=== PATIENT | female | born 1965 | race African-American/Black ===

== ENCOUNTER 2018-09-29 23:15 | Emergency (ER) | payer MEDICARE, OTHER ==
[~2018-09-29] VITALS: Ht 162.6 cm; Wt 54.4 kg
[2018-09-29 23:52] LABS: BASO % 1 % (0-3); EOS # 0.1 x10^3/uL (0.0-0.7); EOS % 2 % (0-3); HEMATOCRIT 44.5 % (36.0-47.0); HEMOGLOBIN 15.3 g/dL (12.0-15.5); LYMPH # 1.9 x10^3/uL (1.0-4.8); LYMPH % 37 % (24-48); MEAN CORPUSCULAR HEMOGLOBIN 29 pg (25-35); MEAN CORPUSCULAR HGB CONC 34 g/dL (31-37); MEAN CORPUSCULAR VOLUME 83 fL (79-100); MONO # 0.5 x10^3/uL (0.0-1.1); MONO % 9 % (0-9); NEUT # 2.7 x10^3uL (1.8-7.7); NEUT % 51 % (31-73); PLATELET COUNT 258 x10^3/uL (140-400); RED BLOOD COUNT 5.35 x10^6/uL (3.50-5.40); RED CELL DISTRIBUTION WIDTH 13.3 % (11.5-14.5); WHITE BLOOD COUNT 5.3 x10^3/uL (4.0-11.0)
[2018-09-30 00:05] LABS: PROTHROMBIN TIME PATIENT 12.9 SEC (11.7-14.0)
--- NOTE | 2018-09-30 00:27 | PHYS DOC ---
Past Medical History Past Medical History: Hypertension, Stroke Additional Past Medical Histor: ulcerative colitis Past Surgical History: Hysterectomy Alcohol Use: Occasionally Drug Use: Marijuana Adult General Chief Complaint Chief Complaint: CHEST PAIN HPI HPI Patient is a 53 year old female presents to the ED with chest pain and headache. Her headache started 2 weeks ago when she "passed out" in a [employer] bathroom and could not get up. She woke up with a hand contracture of her left hand. She has had a "horrible" unrelenting headache since. She went to her PCP earlier today who told her to take another blood pressure medicine. She did and her blood pressure did not go down. Her chest started hurting 3 days ago. She also has shortness of breath with her chest pain. Chest pain is rated 10/10 and radiates up to the left arm. She is on Xanax and Percocet lately for anxiety and a broken right shoulder in April 2018, respectively. She tried taking each and neither helped. The headache and chest pain combination reminds her of when she had a stroke. Denies fever/chills. Denies further trauma. Review of Systems Review of Systems Constitutional: Denies fever or chills [] Eyes: Admits blurry vision. Denies redness, or eye pain [] HENT: Denies nasal congestion or sore throat [] Respiratory: Admits shortness of breath. Denies cough Cardiovascular: Admits chest pain. Denies palpitations. GI: Denies abdominal pain, nausea, vomiting, or diarrhea [] : Denies dysuria or hematuria [] Musculoskeletal: Admits bilateral shoulder pain. Denies back pain. [] Integument: Denies rash or skin lesions [] Neurologic: Admits headache and chronic numbness in feet and hands. Denies focal weakness Complete systems were reviewed and found to be within normal limits, except as documented in this note. Current Medications Current Medications Current Medications Medications (Trade) Dose Ordered Sig/Ave Start Time Stop Time Status Last Admin Dose Admin Dexamethasone Sodium Phosphate (Decadron) 10 mg 1X ONCE 09/30/18 01:00 09/30/18 01:01 DC 09/30/18 01:00 10 MG Diphenhydramine HCl (Benadryl) 50 mg 1X ONCE 09/30/18 01:00 09/30/18 01:01 DC 09/30/18 01:00 50 MG Ondansetron HCl (Zofran) 4 mg 1X ONCE 09/30/18 01:00 09/30/18 01:01 DC 09/30/18 00:59 4 MG Sodium Chloride 1,000 ml @ 1,000 mls/hr 1X ONCE 09/30/18 01:00 09/30/18 01:59 DC 09/30/18 00:59 1,000 MLS/HR Allergies Allergies Allergies Coded Allergies Type Severity Reaction Last Updated Verified prochlorperazine Allergy Severe Anaphylaxis 02/24/15 No Physical Exam Physical Exam Constitutional: Well developed, well nourished, no acute distress, non-toxic appearance. [] HENT: Normocephalic, atraumatic, oropharynx moist, nose normal. [] Eyes: PERRL, EOMI, conjunctiva normal, no discharge. [] Neck: Normal range of motion, no tenderness, supple, no meningeal signs Cardiovascular: Heart rate regular rhythm, no murmur [] Lungs & Thorax: Bilateral breath sounds clear to auscultation [] Abdomen: Soft, no tenderness Skin: Warm, dry, no erythema, no rash. [] Back: No tenderness, no CVA tenderness. [] Extremities: Right shoulder tenderness on ROM at glenohumeral joint, no deformity, no edema, neurovascularly intact Neurologic: Alert and oriented X 3, normal motor function, normal sensory function, no focal deficits noted. [] Psychologic: Affect normal, judgement normal, mood normal. [] Current Patient Data Vital Signs Vital Signs Date Time Temp Pulse Resp B/P (MAP) Pulse Ox O2 Delivery O2 Flow Rate FiO2 09/30/18 01:33 94 16 90/61 (71) 100 Room Air 09/29/18 23:27 98.9 98.9 Lab Values Laboratory Tests Test 09/29/18 23:40 09/30/18 00:00 09/30/18 00:18 White Blood Count 5.3 x10^3/uL (4.0-11.0) Red Blood Count 5.35 x10^6/uL (3.50-5.40) Hemoglobin 15.3 g/dL (12.0-15.5) Hematocrit 44.5 % (36.0-47.0) Mean Corpuscular Volume 83 fL (79-100) Mean Corpuscular Hemoglobin 29 pg (25-35) Mean Corpuscular Hemoglobin Concent 34 g/dL (31-37) Red Cell Distribution Width 13.3 % (11.5-14.5) Platelet Count 258 x10^3/uL (140-400) Neutrophils (%) (Auto) 51 % (31-73) Lymphocytes (%) (Auto) 37 % (24-48) Monocytes (%) (Auto) 9 % (0-9) Eosinophils (%) (Auto) 2 % (0-3) Basophils (%) (Auto) 1 % (0-3) Neutrophils # (Auto) 2.7 x10^3uL (1.8-7.7) Lymphocytes # (Auto) 1.9 x10^3/uL (1.0-4.8) Monocytes # (Auto) 0.5 x10^3/uL (0.0-1.1) Eosinophils # (Auto) 0.1 x10^3/uL (0.0-0.7) Basophils # (Auto) 0.0 x10^3/uL (0.0-0.2) Prothrombin Time 12.9 SEC (11.7-14.0) Prothrombin Time INR 1.0 (0.8-1.1) Urine Opiates Screen Neg (NEG) Urine Methadone Screen Neg (NEG) Urine Barbiturates Neg (NEG) Urine Phencyclidine Screen Neg (NEG) Urine Amphetamine/Methamphetamine Neg (NEG) Urine Benzodiazepines Screen Pos (NEG) Urine Cocaine Screen Neg (NEG) Urine Cannabinoids Screen Pos (NEG) Urine Ethyl Alcohol Neg (NEG) Sodium Level 142 mmol/L (136-145) Potassium Level 3.6 mmol/L (3.5-5.1) Chloride Level 103 mmol/L (98-107) Carbon Dioxide Level 27 mmol/L (21-32) Anion Gap 12 (6-14) Blood Urea Nitrogen 12 mg/dL (7-20) Creatinine 0.7 mg/dL (0.6-1.0) Estimated GFR (Cockcroft-Gault) 106.7 BUN/Creatinine Ratio 17 (6-20) Glucose Level 104 mg/dL (70-99) H Calcium Level 9.4 mg/dL (8.5-10.1) Magnesium Level 2.0 mg/dL (1.8-2.4) Total Bilirubin 0.2 mg/dL (0.2-1.0) Aspartate Amino Transferase (AST) 22 U/L (15-37) Alanine Aminotransferase (ALT) 41 U/L (14-59) Alkaline Phosphatase 134 U/L (46-116) H Creatine Kinase 76 U/L (26-192) Creatine Kinase MB (Mass) 0.6 ng/mL (0.0-3.6) Creatine Kinase MB Relative Index 0.8 % (0-4) Troponin I Quantitative < 0.017 ng/mL (0.000-0.055) QC-Svd-F-Type Natriuretic Peptide 22 pg/mL (0-124) Total Protein 7.7 g/dL (6.4-8.2) Albumin 3.5 g/dL (3.4-5.0) Albumin/Globulin Ratio 0.8 (1.0-1.7) L Lipase 112 U/L (73-393) Ethyl Alcohol Level < 10 mg/dL (0-10) Laboratory Tests 09/29/18 23:40 Laboratory Tests 09/30/18 00:18 EKG EKG EKG taken at 2321 on 09/29/2018. Read at 2325. Sinus rhythm at [address] elevation. T wave inversions V5-V6. Radiology/Procedures Radiology/Procedures PROCEDURE: CHEST PA & LATERAL Two-view chest dated 09/30/2018. COMPARISON: None. Clinical data indication: Chest discomfort. FINDINGS: PA and lateral views of the chest were obtained. Heart and mediastinal contours are within normal limits. Lungs are clear without focal consolidation. Vascular interstitium within normal limits. No pleural effusion or pneumothorax. IMPRESSION: No acute findings. Electronically signed by: Luiz Calles MD (09/30/2018 1:07 AM) [facility] PROCEDURE: CT HEAD WO CONTRAST CT head without contrast dated 09/30/2018. No comparison available. CLINICAL INDICATION: Headache. TECHNIQUE: Contiguous axial imaging the head was performed from skull base to vertex. No contrast administered. One or more of the following individualized dose reduction techniques were utilized for this examination: 1. Automated exposure control 2. Adjustment of the mA and/or kV according to patient size 3. Use of iterative reconstruction technique FINDINGS: Ventricles and sulci are within normal limits for age. No midline shift or mass effect. Brain parenchyma is of normal attenuation. No hemorrhage or extra-axial collection. Posterior fossa and brainstem unremarkable. Visualized paranasal sinuses and mastoid air cells are clear. No acute calvarial abnormality. IMPRESSION: No evidence of acute intracranial abnormality. Electronically signed by: Luiz Calles MD (09/30/2018 1:10 AM) PROCEDURE: SHOULDER 2+V RIGHT Three-view right shoulder dated 09/30/2018. No comparison available. CLINICAL INDICATION: Pain after injury. FINDINGS: 3 views of the right shoulder show irregularity and cortical step-off of the humeral head near the level of the anatomic neck. No significant displacement. Mild degenerative change of the glenohumeral joint. Mild degenerative change of the AC joint. IMPRESSION: Cortical irregularity of the proximal humerus could represent a nondisplaced fracture. This is age indeterminate and could be subacute to remote. If indicated CT could better evaluate. Electronically signed by: Luiz Calles MD (09/30/2018 1:09 AM) [facility] Course & Med Decision Making Course & Med Decision Making Pertinent Labs and Imaging studies reviewed. (See chart for details) Patient presents to the ED with chest pain 3 days and headache was 2 weeks with concern for elevated blood pressure. BP upon arrival was 160s/90s. Patient neurologically intact. NIHSS 0. Headache addressed with interval improvement of both blood pressure and discomfort. Troponin negative. EKG unremarkable for acute findings other than inverted T wave in V5. Heart score 3. Chest x-ray benign. CT head neck showed no acute intracranial abnormalities. Right shoulder x-ray showed subacute to remote fracture of right humerus. Patient stable for discharge with outpatient follow-up with PCP. Discussed findings and plan with patient, who acknowledge understanding and agreement. Dragon Disclaimer Dragon Disclaimer This electronic medical record was generated, in whole or in part, using a voice recognition dictation system. Departure Departure Impression: Primary Impression: Chest pain Additional Impressions: Chronic right shoulder pain Headache Disposition: 01 HOME, SELF-CARE Condition: STABLE Referrals: TAWANNA HORN MD (PCP) Patient Instructions: Chest Pain (Nonspecific), [id number], Chronic Pain, Headache, FAQs Scripts Butalb/Acetaminophen/Caffeine ([id number] 50-325-40) 1 Each Tablet 1 EACH PO Q6HRS PRN for HEADACHE, #14 TAB Prov: LUIZ BAILEY DO 09/30/18 NIHSS Stroke Scale NIH Stroke Scale: NIH Stroke Scale Response (Comments) Value Level of Consciousness: 0 Alert/Responsive 0 LOC Questions: 0 Answers both correctly 0 LOC Commands: 0 Performs both tasks 0 Best Gaze: 0 Normal 0 Visual: 0 No visual loss 0 Facial Palsy: 0 Normal, symmetrical 0 Motor - Left Arm 0 No drift 0 Motor - Right Arm 0 No drift 0 Motor - Left Leg 0 No drift 0 Motor: Right Leg 0 No drift 0 Limb Ataxia: 0 Absent 0 Sensory: 0 No loss 0 Best Language: 0 Normal 0 Dysathria: 0 Normal 0 Extinction and Inattention: 0 Normal 0 Total 0 Problem Qualifiers Primary Impression: Chest pain Chest pain type: unspecified Qualified Codes: R07.9 - Chest pain, unspecified Additional Impressions: Headache Headache type: unspecified Headache chronicity pattern: acute headache Intractability: not intractable Qualified Codes: R51 - Headache LUIZ BAILEY DO Sep 30, 2018 00:27
[2018-09-30 00:44] LABS: BARBITURATES NEG (NEG); BENZODIAZEPINES POS (NEG); CANNABINOIDS POS (NEG); COCAINE NEG (NEG); METHADONE NEG (NEG); OPIATES NEG (NEG); PHENCYCLIDINE NEG (NEG)
[2018-09-30 00:51] LABS: AMPHETAMINE/METHAMPHETAMINE NEG (NEG)
[2018-09-30 00:57] LABS: CALCIUM 9.4 mg/dL (8.5-10.1); CREATININE 0.7 mg/dL (0.6-1.0); GFR 106.7; POTASSIUM 3.6 mmol/L (3.5-5.1)
[2018-09-30 01:00] LABS: ALBUMIN 3.5 g/dL (3.4-5.0); ALBUMIN/GLOBULIN RATIO 0.8 (1.0-1.7); TOTAL BILIRUBIN 0.2 mg/dL (0.2-1.0); TOTAL PROTEIN 7.7 g/dL (6.4-8.2)
[2018-09-30] MEDS ORDERED: diphenhydrAMINE 50 MG/ML VIAL IVP ONE (01:00)
[2018-09-30] MEDS ORDERED: IV NORMAL SALINE 1000ML BAG 1,000 ML IV ONE (01:00)
[2018-09-30] MEDS ORDERED: DEXAMETHASONE SOD PHOS 20 MG/5 ML VIAL. IV ONE (01:00)
[2018-09-30] MEDS ORDERED: ONDANSETRON PF 4 MG/2 ML VIAL. IV ONE (01:00)
--- NOTE | 2018-09-30 01:10 | RAD ---
Two-view chest dated 09/30/2018. COMPARISON: None. Clinical data indication: Chest discomfort. FINDINGS: PA and lateral views of the chest were obtained. Heart and mediastinal contours are within normal limits. Lungs are clear without focal consolidation. Vascular interstitium within normal limits. No pleural effusion or pneumothorax. IMPRESSION: No acute findings. Electronically signed by: Luiz Calles MD (09/30/2018 1:07 AM) [facility]
--- NOTE | 2018-09-30 01:12 | RAD ---
Three-view right shoulder dated 09/30/2018. No comparison available. CLINICAL INDICATION: Pain after injury. FINDINGS: 3 views of the right shoulder show irregularity and cortical step-off of the humeral head near the level of the anatomic neck. No significant displacement. Mild degenerative change of the glenohumeral joint. Mild degenerative change of the AC joint. IMPRESSION: Cortical irregularity of the proximal humerus could represent a nondisplaced fracture. This is age indeterminate and could be subacute to remote. If indicated CT could better evaluate. Electronically signed by: Luiz Calles MD (09/30/2018 1:09 AM) [facility]
--- NOTE | 2018-09-30 01:13 | RAD ---
CT head without contrast dated 09/30/2018. No comparison available. CLINICAL INDICATION: Headache. TECHNIQUE: Contiguous axial imaging the head was performed from skull base to vertex. No contrast administered. One or more of the following individualized dose reduction techniques were utilized for this examination: 1. Automated exposure control 2. Adjustment of the mA and/or kV according to patient size 3. Use of iterative reconstruction technique FINDINGS: Ventricles and sulci are within normal limits for age. No midline shift or mass effect. Brain parenchyma is of normal attenuation. No hemorrhage or extra-axial collection. Posterior fossa and brainstem unremarkable. Visualized paranasal sinuses and mastoid air cells are clear. No acute calvarial abnormality. IMPRESSION: No evidence of acute intracranial abnormality. Electronically signed by: Luiz Calles MD (09/30/2018 1:10 AM) [facility]
[2018-09-30 01:33] VITALS: BP 90/61
[2018-09-30] MEDS ORDERED: BUTA1TAB23 PO (01:50)
--- NOTE | 2018-09-30 07:06 | EKG ---
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
== END 2018-09-30 02:19 | disposition home or self-care (01) ==
LOC: ER 23:15
DX: R07.89 Other chest pain (principal); R51 Headache; G89.29 Other chronic pain; M25.511 Pain in right shoulder; I10 Essential (primary) hypertension; Z86.73 Personal history of transient ischemic attack (TIA), and cerebral infarction without residual deficits; Z88.8 Allergy status to other drugs, medicaments and biological substances
CPT/HCPCS: 36415; 70450; 71046; 73030; 80053; 80307; 82553; 83690; 83735; 83880; 84484; 85025; 85610; 93005; 96361; 96374; 96375; 99284; G0480; J1100; J1200; J2405; J7030

== ENCOUNTER 2018-12-03 00:28 | Emergency (ER) | payer OTHER ==
[~2018-12-03] VITALS: Ht 162.6 cm; Wt 72.1 kg
[~2018-12-03 00:28] MED LIST: BUTA1TAB23 PO
[2018-12-03 01:18] LABS: BILIRUBIN,URINE NEGATIVE (NEG); CLARITY,URINE CLEAR; COLOR,URINE YELLOW; NITRITE,URINE NEGATIVE (NEG); PH,URINE 5.5; PROTEIN,URINE NEGATIVE (NEG-TRACE); UROBILINOGEN,URINE 0.2 mg/dL (0.2 mg/dL)
--- NOTE | 2018-12-03 01:20 | PHYS DOC ---
Past Medical History Past Medical History: Hypertension, Stroke Additional Past Medical Histor: IBS Past Surgical History: Hysterectomy Alcohol Use: Occasionally Drug Use: Marijuana Adult General Chief Complaint Chief Complaint: ABDOMINAL PAIN HPI HPI Patient is a 53 year old female who presents with complaining of abdominal pain. Patient complaining of left upper quadrant cramping and constant pain for the last 3 days with radiation to her back and chest. Patient rated her pain 10 over 10 and complaining of nausea and anorexia and increasing pain with eating. Patient states she had constipation for the last 5 days even she re-started to take Linzess one week ago. Patient complaining of bloating abdomen with passing of gas without fever, vomiting, urinary symptoms, vaginal bleeding or discharge. Patient states she took Percocet several hours ago without change of her pain. Patient states she had migraine headache and is of radiation of pain to his chest and decided to come to ER. Review of Systems Review of Systems Constitutional: Denies fever or chills [] Eyes: Denies change in visual acuity, redness, or eye pain [] HENT: Denies nasal congestion or sore throat [] Respiratory: Denies cough or shortness of breath [] Cardiovascular: No additional information not addressed in HPI [] GI: Reports abdominal pain, nausea, constipation, denies vomiting, bloody stools or diarrhea [] : Denies dysuria or hematuria [] Musculoskeletal: Denies back pain or joint pain [] Integument: Denies rash or skin lesions [] Neurologic: Denies headache, focal weakness or sensory changes [] Endocrine: Denies polyuria or polydipsia [] All other systems were reviewed and found to be within normal limits, except as documented in this note. Current Medications Current Medications Current Medications Medications (Trade) Dose Ordered Sig/[facility] Start Time Stop Time Status Last Admin Dose Admin Acetaminophen/ Hydrocodone Bitart (Lortab 5/325) 1 tab 1X ONCE 12/03/18 03:00 12/03/18 03:01 Fentanyl Citrate (Fentanyl 2ml Vial) 50 mcg 1X ONCE 12/03/18 01:30 12/03/18 01:31 DC 12/03/18 01:25 50 MCG Info (CONTRAST GIVEN -- Rx MONITORING) 1 each PRN DAILY PRN 12/03/18 02:15 12/05/18 02:14 Iohexol (Omnipaque 300 Mg/ml) 100 ml 1X ONCE 12/03/18 02:30 12/03/18 02:31 DC 12/03/18 02:16 75 ML Ondansetron HCl (Zofran) 4 mg 1X ONCE 12/03/18 01:30 12/03/18 01:31 DC 12/03/18 01:25 4 MG Potassium Chloride (Klor-Con) 40 meq 1X ONCE 12/03/18 03:00 12/03/18 03:01 Sodium Chloride 1,000 ml @ 1,000 mls/hr Q1H 12/03/18 01:30 12/03/18 02:29 DC 12/03/18 01:25 1,000 MLS/HR Allergies Allergies Allergies Coded Allergies Type Severity Reaction Last Updated Verified prochlorperazine Allergy Severe Anaphylaxis 02/24/15 No Physical Exam Physical Exam Constitutional: Well developed, well nourished, mild distress, non-toxic appearance. [] HENT: Normocephalic, atraumatic, oropharynx moist. Eyes: PERRLA, EOMI, conjunctiva normal, no discharge. [] Neck: Normal range of motion, no tenderness, supple, no stridor. [] Cardiovascular:Heart rate regular rhythm, no murmur [] Lungs & Thorax: Bilateral breath sounds clear to auscultation [] Abdomen: Bowel sounds normal, soft, no tenderness, no masses, no pulsatile masses. [] Skin: Warm, dry, no erythema, no rash. [] Back: No tenderness, no CVA tenderness. [] Extremities: No tenderness, no cyanosis, no clubbing, ROM intact, no edema. [] Neurologic: Alert and oriented X 3, normal motor function, normal sensory function, no focal deficits noted. [] Psychologic: Affect normal, judgement normal, mood normal. [] Current Patient Data Vital Signs Vital Signs Date Time Temp Pulse Resp B/P (MAP) Pulse Ox O2 Delivery O2 Flow Rate FiO2 12/03/18 01:25 18 98 Room Air 12/03/18 00:50 98.2 87 133/98 (110) 98.2 Lab Values Laboratory Tests Test 12/03/18 00:30 12/03/18 01:26 Urine Collection Type Unknown Urine Color Yellow Urine Clarity Clear Urine pH 5.5 Urine Specific [place] 1.010 Urine Protein Negative mg/dL (NEG-TRACE) Urine Glucose (UA) Negative mg/dL (NEG) Urine Ketones (Stick) Negative mg/dL (NEG) Urine Blood Negative (NEG) Urine Nitrite Negative (NEG) Urine Bilirubin Negative (NEG) Urine Urobilinogen Dipstick 0.2 mg/dL (0.2 mg/dL) Urine Leukocyte Esterase Small (NEG) Urine RBC Occ /HPF (0-2) Urine WBC 5-10 /HPF (0-4) Urine Squamous Epithelial Cells Mod /LPF Urine Bacteria Few /HPF (0-FEW) White Blood Count 3.9 x10^3/uL (4.0-11.0) L Red Blood Count 4.75 x10^6/uL (3.50-5.40) Hemoglobin 13.4 g/dL (12.0-15.5) Hematocrit 39.4 % (36.0-47.0) Mean Corpuscular Volume 83 fL (79-100) Mean Corpuscular Hemoglobin 28 pg (25-35) Mean Corpuscular Hemoglobin Concent 34 g/dL (31-37) Red Cell Distribution Width 13.3 % (11.5-14.5) Platelet Count 205 x10^3/uL (140-400) Neutrophils (%) (Auto) 45 % (31-73) Lymphocytes (%) (Auto) 40 % (24-48) Monocytes (%) (Auto) 12 % (0-9) H Eosinophils (%) (Auto) 2 % (0-3) Basophils (%) (Auto) 1 % (0-3) Neutrophils # (Auto) 1.8 x10^3uL (1.8-7.7) Lymphocytes # (Auto) 1.6 x10^3/uL (1.0-4.8) Monocytes # (Auto) 0.5 x10^3/uL (0.0-1.1) Eosinophils # (Auto) 0.1 x10^3/uL (0.0-0.7) Basophils # (Auto) 0.0 x10^3/uL (0.0-0.2) Sodium Level 140 mmol/L (136-145) Potassium Level 3.1 mmol/L (3.5-5.1) L Chloride Level 103 mmol/L (98-107) Carbon Dioxide Level 25 mmol/L (21-32) Anion Gap 12 (6-14) Blood Urea Nitrogen 14 mg/dL (7-20) Creatinine 0.8 mg/dL (0.6-1.0) Estimated GFR (Cockcroft-Gault) 91.5 BUN/Creatinine Ratio 18 (6-20) Glucose Level 123 mg/dL (70-99) H Calcium Level 9.4 mg/dL (8.5-10.1) Total Bilirubin 0.3 mg/dL (0.2-1.0) Aspartate Amino Transferase (AST) 24 U/L (15-37) Alanine Aminotransferase (ALT) 21 U/L (14-59) Alkaline Phosphatase 105 U/L (46-116) Total Protein 7.5 g/dL (6.4-8.2) Albumin 3.6 g/dL (3.4-5.0) Albumin/Globulin Ratio 0.9 (1.0-1.7) L Lipase 109 U/L (73-393) Laboratory Tests 12/03/18 01:26 Laboratory Tests 12/03/18 01:26 EKG EKG [] Radiology/Procedures Radiology/Procedures [facility] [address] [place] [address] IMAGING REPORT Signed PATIENT: BONITA RIVERA ACCOUNT: [id number] : 1965 LOCATION: ER AGE: 53 SEX: F EXAM STATUS: REG ER ORD. PHYSICIAN: SAMREEN MYERS MD REASON: left upper quadrant pain PROCEDURE: CT ABD PELV W/ IV CONTRST ONLY Examination: CT of the abdomen pelvis with IV contrast HISTORY: History of left upper quadrant abdominal pain COMPARISON: 06/25/2011 TECHNIQUE: Axial CT images of the abdomen pelvis were performed with IV contrast. Coronal and sagittal reformatted performed Exposure: One or more of the following individualized dose reduction techniques were utilized for this examination: 1. Automated exposure control 2. Adjustment of the mA and/or kV according to patient size 3. Use of iterative reconstruction technique FINDINGS: Mild bibasilar lung airspace opacities likely atelectasis. No evidence of free air identified in the abdomen. Mild prominent appearing intrahepatic bile ducts and the common bile duct likely post cholecystectomy changes similar to prior exam. Focal fat identified in the left lobe of the liver is similar to prior exam. The visualized spleen, adrenals grossly appears unremarkable. The stomach is mildly distended. The small bowel is nondilated. The cord stool identified in the colon. The appendix is normal. The bilateral kidneys enhance symmetrically. The caliber of the aorta grossly appears unremarkable. The urinary bladder is mildly distended. The is a small nodule or lymph node identified in the left breast measuring 7 mm. No evidence of lytic bony destructive lesion. IMPRESSION: 1. Cholecystectomy changes unchanged. 2. Liquid stool identified in the colon probably secondary for diarrhea. 3. 7 mm nodule identified in the left breast could be breast nodule or lymph node. Follow-up nonemergent ultrasound breast and mammogram can be considered. Electronically signed by: King Macdonald MD (12/03/2018 2:30 AM) [facility] DICTATED and SIGNED BY: KING MACDONALD MD DATE: 12/03/18 0230 Course & Med Decision Making Course & Med Decision Making Pertinent Labs and Imaging studies reviewed. (See chart for details) Evaluation of patient in ER showed 53-year-old female patient with complaining of abdominal pain. Patient had the same pain with previous episodes of otitis. Patient had unremarkable labs except for mild hypokalemia and UTI. CT of abdomen and pelvis did not show acute finding. Patient treated with any treatment in ER and plans to see her primary care physician today. I've spoken with the patient and/or caregivers. I've explained the patient's condition, diagnosis and treatment plan based on information available to me at this time. I've answered the patient's and/or caregivers questions and addressed any concerns. The patient and/or caregivers have a good understanding the patient's diagnosis, condition and treatment plan as can be expected at this point. Vital signs have been stabilized. The patient's condition is stable for discharge from the emergency department. The patient will pursue further outpatient evaluation with her primary care provider or other designated consulting physician as outlined in the discharge instructions. Patient and/or caregivers are agreeable to this plan of care and follow-up instructions have been explained in detail. The patient and/or caregivers have received these instructions in written format and expressed understanding of these discharge instructions. The patient and her caregivers are aware that if any significant change in condition or worsening of symptoms should prompt him to immediately return to this of the closest emergency department. If an emergent department is not readily available I would encourage him to call 911. Teofilo Disclaimer Dragon Disclaimer This electronic medical record was generated, in whole or in part, using a voice recognition dictation system. Departure Departure Impression: Primary Impression: Irritable bowel syndrome with diarrhea Additional Impressions: Hypokalemia Urinary tract infection Disposition: HOME, SELF-CARE (at 0246) Condition: IMPROVED Referrals: TAWANNA HORN MD (PCP) Patient Instructions: Diarrhea, Diet for Diarrhea, Adult, Hypokalemia, Urinary Tract Infection Additional Instructions: Drink plenty of liquids Follow-up with your primary care physician as scheduled for today Return to ER if not getting better Scripts Ciprofloxacin Hcl (CIPRO) 250 Mg Tablet 1 TAB PO BID for infection, #6 TAB Prov: SAMREEN MYERS MD 12/03/18 Problem Qualifiers Additional Impressions: Urinary tract infection Urinary tract infection type: site unspecified Hematuria presence: without hematuria Qualified Codes: N39.0 - Urinary tract infection, site not specified SAMREEN MYERS MD December 03, 2018 01:20
[2018-12-03] MEDS ORDERED: ONDANSETRON PF 4 MG/2 ML VIAL. IV ONE (01:30)
[2018-12-03] MEDS ORDERED: fentaNYL PF VIAL 100 MCG/2 ML VIAL IV ONE (01:30)
[2018-12-03] MEDS ORDERED: IV NORMAL SALINE 1000ML BAG 1,000 ML IV SCH (01:30)
[2018-12-03 01:40] LABS: RBC,URINE OCC /HPF (0-2)
[2018-12-03 01:41] LABS: BACTERIA,URINE FEW /HPF (0-FEW); SQUAMOUS EPITHELIAL CELL,UR MOD /LPF
[2018-12-03 01:45] LABS: BASO % 1 % (0-3); EOS # 0.1 x10^3/uL (0.0-0.7); EOS % 2 % (0-3); HEMATOCRIT 39.4 % (36.0-47.0); HEMOGLOBIN 13.4 g/dL (12.0-15.5); LYMPH # 1.6 x10^3/uL (1.0-4.8); LYMPH % 40 % (24-48); MEAN CORPUSCULAR HEMOGLOBIN 28 pg (25-35); MEAN CORPUSCULAR HGB CONC 34 g/dL (31-37); MEAN CORPUSCULAR VOLUME 83 fL (79-100); MONO # 0.5 x10^3/uL (0.0-1.1); MONO % 12 % (0-9); NEUT # 1.8 x10^3uL (1.8-7.7); NEUT % 45 % (31-73); PLATELET COUNT 205 x10^3/uL (140-400); RED BLOOD COUNT 4.75 x10^6/uL (3.50-5.40); RED CELL DISTRIBUTION WIDTH 13.3 % (11.5-14.5); WHITE BLOOD COUNT 3.9 x10^3/uL (4.0-11.0)
[2018-12-03 01:50] VITALS: BP 100/66
[2018-12-03 01:50] LABS: CALCIUM 9.4 mg/dL (8.5-10.1); CREATININE 0.8 mg/dL (0.6-1.0); GFR 91.5; POTASSIUM 3.1 mmol/L (3.5-5.1)
[2018-12-03 01:56] LABS: ALBUMIN 3.6 g/dL (3.4-5.0); ALBUMIN/GLOBULIN RATIO 0.9 (1.0-1.7); TOTAL BILIRUBIN 0.3 mg/dL (0.2-1.0); TOTAL PROTEIN 7.5 g/dL (6.4-8.2)
[2018-12-03] MEDS ORDERED: CONTRAST GIVEN. MC PRN (02:15)
[2018-12-03] MEDS ORDERED: IOHEXOL 300 MG/ML 100ML VIAL. IV ONE (02:30)
--- NOTE | 2018-12-03 02:33 | RAD ---
Examination: CT of the abdomen pelvis with IV contrast HISTORY: History of left upper quadrant abdominal pain COMPARISON: 06/25/2011 TECHNIQUE: Axial CT images of the abdomen pelvis were performed with IV contrast. Coronal and sagittal reformatted performed Exposure: One or more of the following individualized dose reduction techniques were utilized for this examination: 1. Automated exposure control 2. Adjustment of the mA and/or kV according to patient size 3. Use of iterative reconstruction technique FINDINGS: Mild bibasilar lung airspace opacities likely atelectasis. No evidence of free air identified in the abdomen. Mild prominent appearing intrahepatic bile ducts and the common bile duct likely post cholecystectomy changes similar to prior exam. Focal fat identified in the left lobe of the liver is similar to prior exam. The visualized spleen, adrenals grossly appears unremarkable. The stomach is mildly distended. The small bowel is nondilated. The cord stool identified in the colon. The appendix is normal. The bilateral kidneys enhance symmetrically. The caliber of the aorta grossly appears unremarkable. The urinary bladder is mildly distended. The is a small nodule or lymph node identified in the left breast measuring 7 mm. No evidence of lytic bony destructive lesion. IMPRESSION: 1. Cholecystectomy changes unchanged. 2. Liquid stool identified in the colon probably secondary for diarrhea. 3. 7 mm nodule identified in the left breast could be breast nodule or lymph node. Follow-up nonemergent ultrasound breast and mammogram can be considered. Electronically signed by: King Macdonald MD (12/03/2018 2:30 AM) [facility]
[2018-12-03] MEDS ORDERED: CIPR250T30 PO (02:48)
[2018-12-03] MEDS ORDERED: HYDROcodone/APAP 5/325MG 1 TAB TABLET PO ONE (03:00)
[2018-12-03] MEDS ORDERED: POTASSIUM CHLORIDE 20 MEQ TABLET.ER. PO ONE (03:00)
--- NOTE | 2018-12-10 10:59 | NUR ---
Late entry made to Medical Record. IV Stop time transcribed from eMAR to IV spreadsheet
== END 2018-12-03 03:00 | disposition home or self-care (01) ==
LOC: ER 00:28
DX: K58.0 Irritable bowel syndrome with diarrhea (principal); N39.0 Urinary tract infection, site not specified; E87.6 Hypokalemia; I10 Essential (primary) hypertension; Z86.73 Personal history of transient ischemic attack (TIA), and cerebral infarction without residual deficits; Z90.710 Acquired absence of both cervix and uterus; Z88.8 Allergy status to other drugs, medicaments and biological substances
CPT/HCPCS: 36415; 74177; 80053; 81001; 83690; 85025; 87086; 96361; 96374; 96375; 99285; J2405; J3010; J7030; Q9967

== ENCOUNTER 2019-08-17 22:11 | Emergency (ER) | payer MEDICARE, OTHER ==
[~2019-08-17] VITALS: Ht 162.6 cm; Wt 64.0 kg
[~2019-08-17 22:11] MED LIST changes: +CIPR250T30 PO
[2019-08-17 23:35] VITALS: BP 141/97
--- NOTE | 2019-08-17 23:45 | PHYS DOC ---
Past Medical History Past Medical History: Hypertension, Stroke Additional Past Medical Histor: IBS Past Surgical History: Hysterectomy Alcohol Use: Occasionally Drug Use: Marijuana Adult General Chief Complaint Chief Complaint: HEADACHE [facility] HPI Patient is a 54 year old AA female who presents to the emergency department with complaints of headache behind her left eye all day today. Patient states that she thought it was due to her blood pressure being elevated and she tried to go to her primary care doctor's office at approximately 1700 this evening but was told they could not work her in and states she became upset because she asked them to check her vital signs in the refused to check her vital signs. Patient states upon returning home she took an additional dose of her blood pressure medicine, Flexeril, Percocet, and Xanax. She states she came to the emergency room because her headache continued. Currently she states that her headache is actually getting better. She currently rates the pain a 9 out of 10 on the pain scale. Patient states when she left her home the headache was a 10 out of 10 on the pain scale. She denies any vision changes, nausea, vomiting, abdominal pain, numbness, tingling, weakness, or difficulty speaking with the headache. Patient refuses an IV or medications at this time. She states she is starting to feel better and would just like to see if the meds she took help more and then go home. All other ROS is neg unless otherwise noted in HPI. Review of Systems Review of Systems See Above Allergies Allergies Allergies Coded Allergies Type Severity Reaction Last Updated Verified prochlorperazine Allergy Severe Anaphylaxis 02/24/15 No Physical Exam Physical Exam See Above Constitutional: Well developed, well nourished, no acute distress, non-toxic appearance. [] HENT: Normocephalic, atraumatic, bilateral external ears normal, oropharynx moist, no oral exudates, nose normal. [] Eyes: PERRLA, EOMI, conjunctiva normal, no discharge. [] Neck: Normal range of motion, no stridor. [] Cardiovascular:Heart rate regular rhythm Lungs & Thorax: Respirations even and unlabored, no retractions, no respiratory distress Skin: Warm, dry, no erythema, no rash. [] Extremities: No cyanosis, ROM intact Neurologic: Alert and oriented X 3, CN II- CN VII intact, no focal deficits noted. [] Psychologic: Affect normal, judgement normal, mood normal. [] Current Patient Data Vital Signs Vital Signs Date Time Temp Pulse Resp B/P (MAP) Pulse Ox O2 Delivery O2 Flow Rate FiO2 08/17/19 22:50 90 16 100 08/17/19 22:15 97.7 166/113 (130) Room Air 97.7 EKG EKG [] Radiology/Procedures Radiology/Procedures [] Course & Med Decision Making Course & Med Decision Making Pertinent Labs and Imaging studies reviewed. (See chart for details) [] Dragon Disclaimer Dragon Disclaimer This electronic medical record was generated, in whole or in part, using a voice recognition dictation system. Departure Departure Impression: Primary Impression: Headache Disposition: 01 HOME, SELF-CARE Condition: STABLE Referrals: NO PCP (PCP) Patient Instructions: General Headache Without Cause, Toph-kg-Pirt Additional Instructions: Continue taking home medications as prescribed, do not take any more blood pressure medication tonight. Follow-up with your primary care doctor in 1-2 days, return to the ER if symptoms worsen. Problem Qualifiers Primary Impression: Headache Headache type: unspecified Headache chronicity pattern: acute headache Intractability: not intractable Qualified Codes: R51 - Headache TALYA ALMANZA THERAPIST PHYSICAL Aug 17, 2019 23:45
== END 2019-08-17 23:58 | disposition home or self-care (01) ==
LOC: ER 22:11
DX: R51 Headache (principal); I10 Essential (primary) hypertension; K58.9 Irritable bowel syndrome, unspecified; Z86.73 Personal history of transient ischemic attack (TIA), and cerebral infarction without residual deficits; Z88.8 Allergy status to other drugs, medicaments and biological substances
CPT/HCPCS: 99283

== ENCOUNTER 2019-11-23 03:52 | Emergency (ER) | payer MEDICARE ==
[~2019-11-23] VITALS: Ht 162.6 cm; Wt 64.9 kg
[2019-11-23] MEDS ORDERED: IV NORMAL SALINE 1000ML BAG 1,000 ML IV SCH (05:00)
--- NOTE | 2019-11-23 05:06 | RAD ---
Study: CR PORTABLE CHEST 1V Indication: Chest pain. Comparison: 09/30/2018 Findings: Similar configuration of the cardiomediastinal silhouette and triston noting lower lung volumes relative to the comparison. No confluent infiltrate, pneumothorax or layering effusion. Impression: No acute radiographic abnormality of the chest. Electronically signed by: DONTE TAO MD (11/23/2019 5:03 AM) [id number]
--- NOTE | 2019-11-23 05:27 | PHYS DOC ---
Past Medical History Past Medical History: Hypertension, Stroke Additional Past Medical Histor: IBS (MAYANK SCHMIDT Jr., DO) Past Surgical History: Hysterectomy (MAYANK SCHMIDT Jr., DO) Smoking Status: Never Smoker Alcohol Use: Occasionally Drug Use: Marijuana (MAYANK SCHMIDT Jr., DO) General Adult EDM: Chief Complaint: MULTIPLE COMPLAINTS HPI: HPI: Patient is a 54 year old female who presents with complaints of pain in her chest, her head and her back that has been present for the last few months. Patient indicates that she's been seen numerous times in multiple facilities with no specific findings. Patient states that she has had several EKGs performed over the last few weeks and she states that she keeps being told that everything is normal. Currently she rates her pain to be a 3 out of 10.[] (MAYANK SCHMIDT Jr., DO) Review of Systems: Review of Systems: Constitutional: Denies fever or chills. [] Respiratory: Complains of cough and shortness of breath. [] Cardiovascular: Complains of chest pain. [] GI: Denies abdominal pain, vomiting or diarrhea. [] Integument: Denies rash. [] Neurologic: Denies headache, focal weakness or sensory changes. [] A full 10 point review of systems has been reviewed and is otherwise negative. (MAYANK SCHMIDT Jr., DO) Heart Score: Risk Factors: Risk Factors: DM, Current or recent (<one month) smoker, HTN, HLP, family history of CAD, obesity. Risk Scores: Score 0 - 3: 2.5% MACE over next 6 weeks - Discharge Home Score 4 - 6: 20.3% MACE over next 6 weeks - Admit for Clinical Observation Score 7 - 10: 72.7% MACE over next 6 weeks - Early Invasive Strategies (MAYANK SCHMIDT Jr., DO) Current Medications: Current Medications Medications (Trade) Dose Ordered Sig/Ave Start Time Stop Time Status Last Admin Dose Admin Sodium Chloride 1,000 ml @ 1,000 mls/hr Q1H 11/23/19 05:00 11/23/19 05:59 (MAYANK SCHMIDT Jr., DO) Allergies: Allergies: Allergies Coded Allergies Type Severity Reaction Last Updated Verified prochlorperazine Allergy Severe Anaphylaxis 02/24/15 No (MAYANK SCHMIDT Jr., DO) Physical Exam: PE: Constitutional: Well developed, well nourished, no acute distress, non-toxic appearance. [] HENT: Normocephalic, atraumatic, bilateral external ears normal, oropharynx moist, no oral exudates, nose normal. [] Eyes: PERRLA, EOMI, conjunctiva normal, no discharge. [] Neck: Normal range of motion, no tenderness, supple, no stridor. [] Cardiovascular: Regular rate and rhythm. There is reproducible chest wall tenderness along the left mid to lower sternal margin[] Lungs & Thorax: Bilateral breath sounds clear to auscultation [] Abdomen: Bowel sounds normal, soft, no tenderness. [] Skin: Warm, dry, no erythema, no rash. [] Extremities: No tenderness, no cyanosis, no clubbing, ROM intact, no edema. [] Neurologic: Alert and oriented X 3, no focal deficits noted. [] (MAYANK SCHMIDT Jr., DO) Current Patient Data: Vital Signs: Vital Signs Date Time Temp Pulse Resp B/P (MAP) Pulse Ox O2 Delivery O2 Flow Rate FiO2 11/23/19 04:24 97.9 81 18 100/74 (83) 95 Room Air 97.9 (MAYANK SCHMIDT Jr., DO) EKG: EKG: EKG demonstrates a sinus rhythm with rate of 91.[] (MAYANK SCHMIDT Jr., DO) Radiology/Procedures: Radiology/Procedures: [] Impression: PROCEDURE: PORTABLE CHEST 1V Study: CR PORTABLE CHEST 1V Indication: Chest pain. Comparison: 09/30/2018 Findings: Similar configuration of the cardiomediastinal silhouette and triston noting lower lung volumes relative to the comparison. No confluent infiltrate, pneumothorax or layering effusion. Impression: No acute radiographic abnormality of the chest. Electronically signed by: DONTE TAO MD (11/23/2019 5:03 AM) [id number] (MAYANK SCHMIDT Jr., DO) Radiology/Procedures: PROCEDURE: PORTABLE CHEST 1V Study: CR PORTABLE CHEST 1V Indication: Chest pain. Comparison: 09/30/2018 Findings: Similar configuration of the cardiomediastinal silhouette and triston noting lower lung volumes relative to the comparison. No confluent infiltrate, pneumothorax or layering effusion. Impression: No acute radiographic abnormality of the chest. (YOANA ROGERS DO) Course & Med Decision Making: Course & Med Decision Making Pertinent Labs and Imaging studies reviewed. (See chart for details) [] (MAYANK SCHMIDT Jr. DO) Dragon Disclaimer: Dragon Disclaimer: This electronic medical record was generated, in whole or in part, using a voice recognition dictation system. (MAYANK SCHMIDT Jr. DO) Departure Departure Impression: Primary Impression: Chest wall pain Additional Impression: Headache Qualified Codes: R51 - Headache Disposition: HOME, SELF-CARE Condition: STABLE Referrals: NO PCP (PCP) Patient Instructions: Chest Wall Pain, General Headache Without Cause, Pleurisy Scripts Ketorolac Tromethamine (KETOROLAC TROMETHAMINE) 10 Mg Tablet 1 TAB PO TID, #15 TAB Prov: YOANA ROGERS DO 11/23/19 MAYANK SCHMIDT Jr. DO Nov 23, 2019 05:27 YOANA ROGERS DO Nov 23, 2019 06:38
[2019-11-23 06:06] LABS: BASO % 1 % (0-3); EOS # 0.1 x10^3/uL (0.0-0.7); EOS % 3 % (0-3); HEMATOCRIT 40.4 % (36.0-47.0); HEMOGLOBIN 13.5 g/dL (12.0-15.5); LYMPH # 1.9 x10^3/uL (1.0-4.8); LYMPH % 41 % (24-48); MEAN CORPUSCULAR HEMOGLOBIN 28 pg (25-35); MEAN CORPUSCULAR HGB CONC 34 g/dL (31-37); MEAN CORPUSCULAR VOLUME 85 fL (79-100); MONO # 0.4 x10^3/uL (0.0-1.1); MONO % 9 % (0-9); NEUT # 2.1 x10^3/uL (1.8-7.7); NEUT % 46 % (31-73); PLATELET COUNT 201 x10^3/uL (140-400); RED BLOOD COUNT 4.77 x10^6/uL (3.50-5.40); RED CELL DISTRIBUTION WIDTH 13.2 % (11.5-14.5); WHITE BLOOD COUNT 4.6 x10^3/uL (4.0-11.0)
--- NOTE | 2019-11-23 06:13 | EKG ---
[facility] [address] [place] [address] Test Date: 2019-11-23 Test Time: 04:41:55 Pat Name: BONITA RIVERA Department: Room: Gender: F Gm/[employer] Business: : 1965 Requested By: MAYANK SCHMIDT Order Number: [id number] Reading MD: Hayden Jones Measurements Intervals [place] Rate: 90 P: 40 [place]: 138 QRS: 39 QRSD: 82 T: 39 QT: 368 QTc: 454 Interpretive Statements SINUS RHYTHM NON SPECIFIC T ABNORMALITY Electronically Signed On 11-23-2019 10:32:52 CDT by Hayden Jones
[2019-11-23 06:21] LABS: CREATININE 0.8 mg/dL (0.6-1.0); GFR 91.1; POTASSIUM 4.1 mmol/L (3.5-5.1)
[2019-11-23 06:27] LABS: ALBUMIN 3.4 g/dL (3.4-5.0); ALBUMIN/GLOBULIN RATIO 0.9 (1.0-1.7); MAGNESIUM 1.8 mg/dL (1.8-2.4); TOTAL BILIRUBIN 0.2 mg/dL (0.2-1.0); TOTAL PROTEIN 7.3 g/dL (6.4-8.2)
[2019-11-23] MEDS ORDERED: KETO10TA PO (06:38)
[2019-11-23 06:44] VITALS: BP 112/74
== END 2019-11-23 06:50 | disposition home or self-care (01) ==
LOC: ER 03:52
DX: R07.89 Other chest pain (principal); R51 Headache; R05 Cough; R06.02 Shortness of breath; I10 Essential (primary) hypertension; I25.2 Old myocardial infarction; F12.90 Cannabis use, unspecified, uncomplicated; K58.9 Irritable bowel syndrome, unspecified; Z90.710 Acquired absence of both cervix and uterus
CPT/HCPCS: 36415; 71045; 80053; 83690; 83735; 83880; 84484; 85025; 85379; 93005; 99285; J7030

== ENCOUNTER 2021-03-14 22:41 | Emergency (ER) | payer MEDICARE ==
[~2021-03-14] VITALS: Ht 162.6 cm; Wt 75.0 kg
[~2021-03-14 22:41] MED LIST changes: +KETO10TA PO
--- NOTE | 2021-03-14 22:58 | PHYS DOC ---
Past Medical History Past Medical History: Hypertension, Stroke Additional Past Medical Histor: IBS Past Surgical History: Hysterectomy Smoking Status: Never Smoker Alcohol Use: Occasionally Drug Use: Marijuana General Adult EDM: Chief Complaint: CHEST PAIN HPI: HPI: Patient is a 55 year old 45 female with past medical history hypertension CVA with no residual weakness presents with a chief complaint of chest discomfort and headache. Patient states symptoms have been ongoing since March 03. Symptoms also included dehydration generalized weakness. [facility] and diagnosed with COVID-19. Patient states she received IV fluids with improvement. Patient also states she underwent a CAT scan of her chest. Patient states she felt much better yesterday so decided to come home to [place]. Patient states her headache and chest discomfort continued and made her think of her previous stroke therefore patient presents for evaluation. On exam patient is alert and oriented x4. She has no focal neurological deficits. Patient arrived to the ER via private vehicle and ambulated into the ER. Patient's vital signs are stable she is not tachycardic or hypoxic. EKG performed shows no acute ischemic changes. Review of Systems: Review of Systems: Constitutional: Denies fever or chills. [] Eyes: Denies change in visual acuity. [] HENT: Denies nasal congestion or sore throat. [] Respiratory: Denies cough or shortness of breath. [] Cardiovascular: positive chest pain GI: Denies abdominal pain, nausea, vomiting, bloody stools or diarrhea. [] : Denies dysuria. [] Musculoskeletal: Denies back pain or joint pain. [] Integument: Denies rash. [] Neurologic: Denies , focal weakness or sensory changes. [positive headache] Endocrine: Denies polyuria or polydipsia. [] Lymphatic: Denies swollen glands. [] Psychiatric: Denies depression or anxiety. [] Heart Score: C/O Chest Pain: N/A Risk Factors: Risk Factors: DM, Current or recent (<one month) smoker, HTN, HLP, family history of CAD, obesity. Risk Scores: Score 0 - 3: 2.5% MACE over next 6 weeks - Discharge Home Score 4 - 6: 20.3% MACE over next 6 weeks - Admit for Clinical Observation Score 7 - 10: 72.7% MACE over next 6 weeks - Early Invasive Strategies Allergies: Allergies: Allergies Coded Allergies Type Severity Reaction Last Updated Verified prochlorperazine Allergy Severe Anaphylaxis 02/24/15 No Physical Exam: PE: Constitutional: Well developed, well nourished, no acute distress, non-toxic appearance. [] HENT: Normocephalic, atraumatic, bilateral external ears normal, oropharynx moist, no oral exudates, nose normal. [] Eyes: PERRLA, EOMI, conjunctiva normal, no discharge. [] Neck: Normal range of motion, no tenderness, supple, no stridor. [] Cardiovascular:Heart rate regular rhythm, no murmur [] Lungs & Thorax: Bilateral breath sounds clear to auscultation [] Abdomen: Bowel sounds normal, soft, no tenderness, no masses, no pulsatile masses. [] Skin: Warm, dry, no erythema, no rash. [] Back: No tenderness, no CVA tenderness. [] Extremities: No tenderness, no cyanosis, no clubbing, ROM intact, no edema. [] Neurologic: Alert and oriented X 3, normal motor function, normal sensory function, no focal deficits noted. [] Psychologic: Affect normal, judgement normal, mood normal. [] EKG: EKG: [] Performed at 2249 Rate 78 Normal sinus rhythm No ST elevation No ST depression No acute CA Radiology/Procedures: Radiology/Procedures: [] Course & Med Decision Making: Course & Med Decision Making Pertinent Labs and Imaging studies reviewed. (See chart for details) [] Dragon Disclaimer: Dragon Disclaimer: This electronic medical record was generated, in whole or in part, using a voice recognition dictation system. Departure Departure Impression: Primary Impression: COVID-19 Additional Impressions: Chest pain Headache Disposition: HOME / SELF CARE / HOMELESS Condition: STABLE Referrals: NO PCP (PCP) GIL OSORIO DO Mar 14, 2021 22:58
[2021-03-14 23:24] LABS: BASO # 0.1 x10^3/uL (0.0-0.2); BASO % 1 % (0-3); EOS # 0.1 x10^3/uL (0.0-0.7); EOS % 2 % (0-3); LYMPH # 1.5 x10^3/uL (1.0-4.8); LYMPH % 32 % (24-48); MEAN CORPUSCULAR HEMOGLOBIN 30 pg (25-35); MEAN CORPUSCULAR HGB CONC 35 g/dL (31-37); MEAN CORPUSCULAR VOLUME 85 fL (79-100); MONO # 0.4 x10^3/uL (0.0-1.1); MONO % 9 % (0-9); NEUT # 2.6 x10^3/uL (1.8-7.7); NEUT % 57 % (31-73); PLATELET COUNT 254 x10^3/uL (140-400); RED BLOOD COUNT 4.37 x10^6/uL (3.50-5.40); RED CELL DISTRIBUTION WIDTH 12.8 % (11.5-14.5); WHITE BLOOD COUNT 4.6 x10^3/uL (4.0-11.0)
[2021-03-14 23:36] LABS: CALCIUM 8.7 mg/dL (8.5-10.1); GFR 70.2; POTASSIUM 4.1 mmol/L (3.5-5.1)
--- NOTE | 2021-03-14 23:41 | EKG ---
[facility] [address] [place] [address] Test Date: 2021-03-14 Test Time: 22:49:33 Pat Name: BONITA RIVERA Department: Room: Gender: F Sample Wrapper: : 1965 Requested By: GIL OSORIO Order Number: [id number] Reading MD: Measurements Intervals [place] Rate: 78 P: 40 [place]: 132 QRS: 28 QRSD: 80 T: -5 QT: 398 QTc: 457 Interpretive Statements SINUS RHYTHM NORMAL ECG RI6.01 No previous ECG available for comparison
[2021-03-14 23:42] LABS: ALBUMIN 2.8 g/dL (3.4-5.0); ALBUMIN/GLOBULIN RATIO 0.7 (1.0-1.7); TOTAL BILIRUBIN 0.2 mg/dL (0.2-1.0); TOTAL PROTEIN 6.6 g/dL (6.4-8.2)
[2021-03-14] MEDS ORDERED: KETOROLAC 30 MG/ML VIAL. IVP ONE (23:45)
[2021-03-15 01:00] VITALS: BP 126/89
== END 2021-03-15 01:00 | disposition home or self-care (01) ==
LOC: ER 22:41
DX: U07.1 COVID-19 (principal); R07.89 Other chest pain; R51.9 Headache, unspecified; I10 Essential (primary) hypertension; K58.9 Irritable bowel syndrome, unspecified; Z86.73 Personal history of transient ischemic attack (TIA), and cerebral infarction without residual deficits; Z88.8 Allergy status to other drugs, medicaments and biological substances
CPT/HCPCS: 36415; 80053; 83880; 84484; 85025; 93005; 96374; 99284; J1885